=== PATIENT | female | born 1945 | race Caucasian/White ===

== ENCOUNTER 2018-03-07 08:29 | Outpatient (CLI) | payer MEDICARE | END 2018-03-07 08:30 | disposition home or self-care (01) | LOC: BICMAMMO 08:29 | PROVIDERS: ATTEND Family Medicine | DX: Z12.31 Encounter for screening mammogram for malignant neoplasm of breast (principal); R92.1 Mammographic calcification found on diagnostic imaging of breast; Z80.3 Family history of malignant neoplasm of breast | CPT/HCPCS: 77063; 77067 ==

== ENCOUNTER 2019-03-13 08:59 | Outpatient (CLI) | payer MEDICARE ==
--- NOTE | 2019-03-13 10:15 | MMO ---
Bilateral MAMMO Bilat Screen [facility]DI[facility]IOT. CLINICAL HISTORY: Patient is 73 years old and is seen for screening. The patient has the following family history of breast cancer: sister, at age 71, malignant (generic). The patient has no personal history of cancer. VIEWS: The views performed were: bilateral craniocaudal with tomosynthesis and bilateral mediolateral oblique with tomosynthesis. FILMS COMPARED: The present examination has been compared to prior imaging studies performed at [facility] on 02/05/2015, 02/07/2016, 02/27/2017 and 03/07/2018. MAMMOGRAM FINDINGS: The breasts are heterogeneously dense, which could obscure a lesion on mammography. There are stable benign appearing calcifications seen in both breasts. There are no suspicious masses, suspicious calcifications, or new areas of architectural distortion. IMPRESSION: THERE IS NO MAMMOGRAPHIC EVIDENCE OF MALIGNANCY. A ROUTINE FOLLOW-UP MAMMOGRAM IN 1 YEAR IS RECOMMENDED. THE RESULTS OF THIS EXAM WERE SENT TO THE PATIENT. ACR BI-RADS Category 2 - Benign finding MAMMOGRAPHY NOTE: 1. A negative mammogram report should not delay a biopsy if a dominant of clinically suspicious mass is present. 2. Approximately 10% to 15% of breast cancers are not detected by mammography. 3. Adenosis and dense breasts may obscure an underlying neoplasm. Reported by: OLMAN ESPOSITO MD Electonically Signed: [id number]
== END 2019-03-13 09:00 | disposition home or self-care (01) ==
LOC: BICMAMMO 08:59
PROVIDERS: ATTEND Family Medicine
DX: Z12.31 Encounter for screening mammogram for malignant neoplasm of breast (principal); Z80.3 Family history of malignant neoplasm of breast
CPT/HCPCS: 77063; 77067

== ENCOUNTER 2019-10-23 07:32 | Inpatient (IN) | payer MEDICARE, OTHER ==
[2019-10-23] MEDS ORDERED: Ondansetron PF 4 MG/2 ML Vial IVP PRN (10:59)
[2019-10-23] MEDS ORDERED: Ondansetron ODT 4 MG TAB SL PRN (10:59)
[2019-10-23] MEDS ORDERED: Dextrose 5% in Water 1,000 ML IV PRN (11:29)
[2019-10-23] MEDS ORDERED: Dextrose 50% Abboject 50 ML SYRINGE SLOW IVP PRN (11:29)
[2019-10-23] MEDS ORDERED: HumaLOG 300 UNITS/3 ML VIAL SC PRN ×2 (11:29)
--- NOTE | 2019-10-23 12:13 | HP ---
PRIMARY CARE PROVIDER: Cesilia Gonzales MD CHIEF COMPLAINT: Fever and chills. HISTORY OF PRESENT ILLNESS: This is a 74-year-old female, who initially presented to [facility] complaining of shaking chills, fever, and mild dysuria. The patient was initially evaluated in the emergency room and diagnosed with urinary tract infection and given Macrobid for home. The patient returned home and took the first dose of her Macrobid but then experienced abdominal discomfort and nausea. The patient presented back to the emergency room within 12 hours, complaining of general body aches, fever, chills, and "shaking inside." The patient denied any travel history or known exposures, or family members with similar symptoms. The patient denied any prominent shortness of breath, productive cough, or chest pain. The patient denied any other medication change or exposure other than the Macrobid, which was prescribed for her urinary tract infection. The patient denied any recent travel history or known COVID exposure. The patient does state that while being evaluated in the emergency room, she developed sudden emesis x3 episodes, necessitating removing her surgical mask. In the emergency room, the patient underwent general evaluation, receiving IV fluids in addition to Zofran, Tylenol, and Rocephin with vancomycin. The patient was referred to the Hospitalist Service for evaluation. PAST MEDICAL HISTORY: 1. Hypertension. 2. Diabetes mellitus type 2. 3. Chronic kidney disease. PAST SURGICAL HISTORY: Status post cholecystectomy. CURRENT MEDICATIONS: The list is being reviewed with the patient and will obtain an accurate list from the family. ALLERGIES: ERYTHROMYCIN AND SULFA. FAMILY HISTORY: Positive for hypertension. SOCIAL HISTORY: Resides in [place], [place]. Retired. Lives independently. Does not drive. No current falls. No alcohol, tobacco, or illicit drug use. REVIEW OF SYSTEMS: CONSTITUTIONAL: Negative for weight loss or gain, ability to conduct usual activities. SKIN: Negative for rash, itching. EYES: Negative for double vision, pain. ENT/MOUTH: Negative for nose bleeding, neck stiffness, pain, tenderness. CARDIOVASCULAR: Negative for palpitations, dyspnea on exertion, orthopnea. RESPIRATORY: Negative for shortness of breath, wheezing, cough, hemoptysis, fever or night sweats. GASTROINTESTINAL: Negative for poor appetite, abdominal pain, heartburn, nausea, vomiting, constipation, or diarrhea. GENITOURINARY: Negative for urgency, frequency, dysuria, nocturia. MUSCULOSKELETAL: Negative for pain, swelling. NEUROLOGIC/PSYCHIATRIC: Negative for anxiety, depression. ALLERGY/IMMUNOLOGIC: Negative for skin rash, bleeding tendency. Otherwise negative except as stated per HPI. PHYSICAL EXAMINATION: VITAL SIGNS: On admission, blood pressure 126/57, pulse 98, respiratory rate 19, temperature 100 degrees Fahrenheit, and O2 saturation 96% on room air. GENERAL APPEARANCE: This is a 74-year-old female, alert and oriented x3, pleasant, responsive, in no acute distress. HEENT: Pupils are equal, round, and reactive to light and accommodation. Extraocular muscles are intact. No scleral icterus. No conjunctival injection. Nares are patent. OP is clear. Teeth in good repair. NECK: Supple. No cervical adenopathy. No thyromegaly. No carotid bruits. No JVD appreciated. Cervical spine with full active and passive range of motion. No meningeal signs noted. CHEST: Lungs are clear to auscultation bilaterally. CARDIOVASCULAR: S1 and S2 with regular rate and rhythm. No murmur, rub, or gallop appreciated. ABDOMEN: Obese, soft, nontender, and nondistended. Bowel sounds are positive in all 4 quadrants. There is no hepatosplenomegaly. No abdominal bruits. No rebound or guarding appreciated. EXTREMITIES: Warm and dry with fair turgor. No clubbing, cyanosis, or asymmetric edema appreciated. Pulses palpable distally at the dorsalis pedis, posterior tibial, and popliteal arteries bilaterally. Capillary refill less than 2 seconds. NEUROLOGIC: Cranial nerves 2 through 12 are grossly intact. No focal or lateralizing signs appreciated. PERTINENT LABORATORY AND X-RAY FINDINGS: Sodium 135, potassium 4.1, chloride 101, CO2 of 22, BUN 25, creatinine 1.53, estimated GFR of 33, glucose 120. Lactic acid level 1.7, calcium 10.3. LFTs within normal limits. CBC showed a white blood cell count of 9.4, hemoglobin 14, hematocrit 43, platelet count 186 with 93% neutrophilia. Urinalysis dated 10/22/2019, showed large leukocyte esterase with 11 to 20 wbc's per high-power field, 2+ bacteria. Portable chest x-ray dated 10/23/2019, showed no acute cardiopulmonary process. EKG dated 10/23/2019, by my interpretation shows sinus tachycardia with heart rates in the low 100s. Normal R-wave progression noted in the precordial leads. Right bundle-branch block pattern noted. No acute ST-T wave changes appreciated. ASSESSMENT AND PLAN: 1. Systemic inflammatory response syndrome secondary to suspected urinary tract infection. The patient will be admitted to the medical floor. We will continue supportive management including IV fluids with normal saline. Continue Rocephin 2 g IV q.24 hours for suspected urinary tract infection and etiology of presentation. Await blood and final urine culture results. 2. Acute on chronic kidney disease, suspect secondary to volume depletion and #1. Continue intravenous normal saline at 100 mL/h. Avoid nephrotoxic agents and limit contrast exposure. Repeat creatinine in the a.m. 3. Dehydration. Continue IV fluids as outlined previously. 4. Diabetes mellitus type 2. Insulin sliding scale for reflexive coverage. Accu-Cheks a.c. and at bedtime. ADA diet. Confirm home diabetic regimen. 5. COVID-19 rule out. COVID-19 PCR pending due to the patient's risk factors and presentation. Respiratory and droplet isolation. 6. Prophylaxis. SCDs while in bed. Pepcid 20 mg p.o. b.i.d. CODE STATUS: Full. Surrogate medical decision maker is the patient's sister. Job ID: [id number]
[2019-10-23 12:40] VITALS: BMI 37.4
[2019-10-23] MEDS: Sodium Chloride 0.9% 1,000 ML IV SCH ×2 (12:46→19:35)
[2019-10-23] MEDS: Acetaminophen 500 MG TAB PO PRN ×2 (15:39→22:40)
[2019-10-23] MEDS: Famotidine 20 MG TAB PO SCH (19:45)
[2019-10-24] MEDS: cefTRIAXone\\ROCEPHIN 2 GM in Sodium Chloride 0.9% 100 ML IVPB SCH (05:13)
[2019-10-24] MEDS: Sodium Chloride 0.9% 1,000 ML IV SCH ×3 (05:13→20:28)
[2019-10-24 07:27] LABS: Hemoglobin 10.8 g/dL (12.0-16.0); Mean Corpuscular Volume 96.8 fL (78.0-98.0); Mean Platelet Volume 7.6 fL (7.4-10.4); Platelet Count 140 thou/uL (130-400); RBC Distribution Width 12.9 % (11.5-14.5); Red Blood Cell (RBC) Count 3.39 mill/uL (4.20-5.40); White Blood Cell (WBC) Count 4.9 thou/uL (4.8-10.8)
[2019-10-24 07:42] LABS: Band 5 % (5-11); Eosinophils 3 % (0-10); Lymphocytes 12 % (21-51); MDiff Complete? YES; Monocytes 2 % (0-10); Neutrophil 78 % (42-75); RBC Morphology Normal
[2019-10-24 07:49] LABS: Anion Gap 9 mmol/L (10-20); BUN (Urea Nitrogen) 18 mg/dL (9.8-20.1); Calc. Creatinine Clearance 64 mL/min (70-130); Calcium 8.4 mg/dL (7.8-10.44); Carbon Dioxide 23 mmol/L (23-31); Chloride 109 mmol/L (98-107); Estimated GFR-MDRD 49; Glucose 87 mg/dL (83-110); Sodium 137 mmol/L (136-145)
[2019-10-24] MEDS: Acetaminophen 500 MG TAB PO PRN (08:14)
[2019-10-24] MEDS: Famotidine 20 MG TAB PO SCH ×2 (08:14→20:28)
--- NOTE | 2019-10-24 10:48 | PDOC.HOSPP ---
- Subjective Encounter Date: 10/24/19 Encounter Time: 10:45 Subjective: f/u for SIRS/UTI and COVID r/o. c/o of itchy eyes and allergy symptoms. Overall doing better today. - Objective Vital Signs & Weight: Vital Signs (12 hours) Temp Pulse Resp BP Pulse Ox 10/24/19 08:00 98.5 F 79 18 105/67 96 10/24/19 03:53 98.5 F 79 18 105/65 98 Weight Weight 198 lb Result Diagrams: 10/24/19 07:12 10/24/19 07:12 Additional Labs: Accuchecks 10/24/19 10/23/19 10/23/19 05:20 19:41 18:16 POC Glucose 97 149 H 109 10/23/19 12:59 POC Glucose 102 Microbiology 10/23/19 07:15 Nasopharyngeal swab Respiratory Virus Panel (PCR) - Final 10/23/19 07:15 Nasal swab Influenza Types A,B Direct EIA - Final 10/23/19 06:14 Venous blood - Right Arm Blood Culture - Preliminary Specimen has been received and culture in progress. No Growth to date. 10/23/19 06:00 Venous blood - Left Arm Blood Culture - Preliminary Specimen has been received and culture in progress. No Growth to date. 10/22/19 17:00 Urine clean catch Urine Culture - Preliminary Escherichia coli Radiology Reviewed by me: Yes (PCXR - no acute process) Hospitalist ROS - Medication Medications: Active Medications Generic Name Dose Route Start Last Admin Trade Name Freq PRN Reason Stop Dose Admin Acetaminophen 1,000 mg 10/23/19 10:59 10/24/19 08:14 Tylenol PO 1,000 mg Q6H PRN Administration Mild Pain (1-3) Famotidine 20 mg 10/23/19 21:00 10/24/19 08:14 Pepcid PO 20 mg BID DAYLIN Administration Ceftriaxone Sodium 2 gm/ 100 mls @ 200 mls/hr 10/24/19 06:00 10/24/19 05:13 Sodium Chloride IVPB 100 mls 0600 DAYLIN Administration Sodium Chloride 1,000 mls @ 100 mls/hr 10/23/19 11:00 10/24/19 05:13 Normal Saline 0.9% IV 1,000 mls .Q10H DAYLIN Administration - Exam General Appearance: NAD, awake alert Eye: PERRL, anicteric sclera ENT: normocephalic atraumatic, no oropharyngeal lesions Neck: supple, symmetric, no JVD, no thyromegaly Heart: RRR, no murmur, no gallops, no rubs, normal peripheral pulses Heart - other findings: S1, S2 Respiratory: CTAB, no wheezes, no rales, no ronchi, normal chest expansion Gastrointestinal: soft, non-tender, non-distended, normal bowel sounds, no palpable masses Extremities: no cyanosis, no clubbing, no edema Skin: normal turgor, no lesions Neurological: cranial nerve grossly intact, no new deficit Musculoskeletal: normal tone, normal strength Psychiatric: normal affect, A&O x 3 Hosp A/P (1) SIRS due to Gram-negative infection Code(s): TTQ1369 - Status: Acute Plan: Continue Rocephin IV, general supportive mgmt (2) E. coli UTI Code(s): N39.0 - URINARY TRACT INFECTION, SITE NOT SPECIFIED; B96.20 - UNSP ESCHERICHIA COLI THE CAUSE OF DISEASES CLASSD ELSWHR Status: Acute Plan: Low-colony on Ucx, continue Rocephin another 24h then convert to po option, continue IVF's (3) Acute kidney injury superimposed on CKD Code(s): N17.9 - ACUTE KIDNEY FAILURE, UNSPECIFIED; N18.9 - CHRONIC KIDNEY DISEASE, UNSPECIFIED Status: Acute Plan: Improved, continue IVF's, avoid nephrotoxic meds and limit contrast exposure (4) Dehydration Code(s): E86.0 - DEHYDRATION Status: Acute Plan: Improving, continue IVF's and encourage increased free-H2O intake (5) DM II (diabetes mellitus, type II), controlled Code(s): E11.9 - TYPE 2 DIABETES MELLITUS WITHOUT COMPLICATIONS Status: Chronic Plan: Diet managed (6) Suspected COVID-19 virus infection Code(s): R68.89 - OTHER GENERAL SYMPTOMS AND SIGNS Status: Acute Plan: Pending PCR testing, respiratory isolation - Plan continue antibiotics, out of bed/ambulate, DVT proph w/SCDs stable currently Continue Rocephin IV Claritin/Cepacol PRN Await COVID PCR results Likely home in 24h
[2019-10-24] MEDS: Cepastat Lozenges 1 LOZ PO PRN (12:30)
[2019-10-24] MEDS: Loratadine 10 MG TAB PO PRN (12:30)
[2019-10-25] MEDS: cefTRIAXone\\ROCEPHIN 2 GM in Sodium Chloride 0.9% 100 ML IVPB SCH (05:10)
[2019-10-25] MEDS: Famotidine 20 MG TAB PO SCH (08:49)
[2019-10-25 09:52] VITALS: BP 133/76; TEMP 98.6
[2019-10-25] MEDS: Loratadine 10 MG TAB PO PRN (11:25)
[2019-10-25] MEDS: Cepastat Lozenges 1 LOZ PO PRN (12:33)
--- NOTE | 2019-10-25 13:01 | DIS ---
DATE OF ADMISSION: 10/23/2019 DATE OF DISCHARGE: 10/25/2019 DISCHARGE DIAGNOSES: 1. Urinary tract infection with Escherichia coli. 2. Systemic inflammatory response syndrome secondarily to urinary tract infection with Escherichia coli resolved. 3. Acute kidney injury on chronic kidney disease, improved. 4. Diabetes mellitus, type 2, diet controlled. 5. COVID-19 ruled out. CONSULTATIONS: None. PERTINENT LABORATORY AND X-RAY FINDINGS: CBC showed a hemoglobin of 11, hematocrit 34. Urine culture dated 10/22/2019, showed 10,000 to 25,000 colonies of E coli pansensitive. Blood cultures x2 dated 10/23/2019, showed no growth to date. Influenza A and B antigen dated 10/23/2019 negative. Respiratory viral panel dated 10/23/2019, negative. COVID-19 PCR negative. HOSPITAL COURSE: The patient was admitted to the medical floor after initially presenting with fever and chills. The patient was placed in respiratory isolation due to concern for potential COVID infection as well as treated for suspected urinary tract infection. The patient was placed on IV Rocephin with urine culture showing E coli species as stated previously. The patient rapidly clinically improved with IV antibiotic therapy and general supportive management with IV fluids. The patient ruled out for COVID-19 by PCR and was taken off respiratory isolation. Overall, the patient did remain clinically stable during the hospital course. I have examined the patient at the time of discharge and discussed followup instructions. The patient verbalizes understanding and in agreement and ready for discharge on 10/25/2019. DISCHARGE MEDICATIONS: Levaquin 500 mg p.o. daily x5 days. FOLLOWUP: The patient to follow up with her primary care provider, Dr. Cesilia Gonzales. CONDITION ON DISCHARGE: Stable. ACTIVITY: Ad-winter. DIET: ADA. CODE STATUS: Full. DISPOSITION: Home on 10/25/2019. Job ID: [id number]
[2019-10-25] MEDS: Sodium Chloride 0.9% 1,000 ML IV SCH (14:48)
--- NOTE | 2019-10-28 07:25 | PQF ---
VICKIE CHOI CHARLES DO [id number] T4-A- [id number] CLINICAL DOCUMENTATION CLARIFICATION FORM: POST DISCHARGE Addendum to original discharge summary date: ____ Late entry note date: __ DATE: 10/28/2019 ATTN: ZENAIDA ELIZALDE DO Please exercise your independent, professional judgment in responding to the clarification form. Clinical indicators are provided on the bottom of this form for your review Please check appropriate box(es): [ ] Sepsis due to UTI [ x ] SIRS due to UTI [ ] with organ dysfunction [ x ] without organ dysfunction [ ] Severe sepsis with acute organ dysfunction of: (Examples: respiratory failure, encephalopathy, acute kidney failure, other) [ ] Septic Shock [ ] Localized infection without sepsis [ ] Other diagnosis [ ] Unable to determine For continuity of documentation, please document condition throughout progress notes and discharge summary. Thank You. CLINICAL INDICATORS - SIGNS / SYMPTOMS / LABS -UTI with Escherichia coli- DS, 10/24, ZENAIDA ELIZALDE DO -Systemic inflammatory response syndrome secondary to UTI- DS, 10/24, ZENAIDA ELIZALDE DO -Covid-19 ruled out- DS, 10/24, ZENAIDA ELIZALDE DO -Temp: 100F, Pulse: 98, RR: 19- H&P, 10/22TONIO CHARLES DO -WBC: 4.9-Laboratory report, 10/23 RISK FACTORS - Acute kidney injury-DS, 10/24, ZENAIDA ELIZALDE DO - UTI- DS, 10/24, ZENAIDA ELIZALDE DO TREATMENTS: - Rocephin.IV- TONIO RODARTE CHARLES DO (This form is maintained as a part of the permanent medical record) 2014 [employer]. All Rights Reserved [facility]
--- NOTE | 2019-10-30 00:36 | PQF ---
VICKIE CHOI CHARLES DO [id number] T4-A- 4413 [id number] CLINICAL DOCUMENTATION CLARIFICATION FORM: POST DISCHARGE Addendum to original discharge summary date: ____ Late entry note date: __ DATE: 10/30/2019 ATTN:ZENAIDA ELIZALDE DO Please exercise your independent, professional judgment in responding to the clarification form. Clinical indicators are provided on the bottom of this form for your review Please check appropriate box(s): [ x ] CKD please specify Stage of CKD_III [ ] ESRD [ ] Other diagnosis [ ] Unable to determine National Kidney Foundation Guidelines for CKD Staging Stage I Kidney damage with normal or increased GFRGFR > 90 Stage IIKidney damage with mildly decreased GFRGFR 60-89 Stage III Kidney damage with moderately decreased GFRGFR 30-59 Stage IVKidney damage with severely decreased GFRGFR 16-29 Stage VKidney failureGFR<15 ESRDEnd Stage Renal DiseaseOn dialysis Acute Renal Failure/Acute Kidney Failure defined as: Increases in SCr by (>) 0.3 mg/dl within 48 hours OR- Increases in SCr by (>) 1.5 times baseline, known or presumed to have occurred within the prior 7 days OR- Urine volume < 0.5 ml/kg/hour for 6 hours (KDIGO supplement 2012 for RIFLE/OLIVE criteria) For continuity of documentation, please document condition throughout progress notes and discharge summary. Thank You. CLINICAL INDICATORS - SIGNS / SYMPTOMS / LABS / RESULTS AND LOCATION IN MR - Acute kidney injury on chronic kidney disease- DS, 10/24, rAt Raya DO - BUN: 18- Laboratory report, 10/23 - Creatinine- Laboratory report, 10/23 - GFR : 49- Laboratory report, 10/23 RISK FACTORS / RESULTS AND LOCATION IN MR - PMH: Hypertension - H&P, 10/27, Zenaida Elizalde DO - PMH: DM type2-- H&P, 10/27, Zenaida Elizalde DO - Dehydration: - H&P, 10/27, Zenaida Elizalde DO TREATMENTS / RESULTS AND LOCATION IN MR - Sodium chloride.IV- MAR, 10/23 (This form is maintained as a part of the permanent medical record) 2014 [employer] All Rights Reserved Cris [email or web address] DERIAN
== END 2019-10-25 15:50 | disposition home or self-care (01) | DRG 690 ==
LOC: T4-A 09:57
PROVIDERS: ADMIT Emergency Medicine; ATTEND Emergency Medicine
PROC: 8E0ZXY6 Isolation (ICD-10-PCS; principal; 2019-10-23)
DX: N39.0 Urinary tract infection, site not specified (principal); N17.9 Acute kidney failure, unspecified; E86.0 Dehydration; E86.9 Volume depletion, unspecified; I12.9 Hypertensive chronic kidney disease with stage 1 through stage 4 chronic kidney disease, or unspecified chronic kidney disease; N18.3 Chronic kidney disease, stage 3 (moderate); B96.20 Unspecified Escherichia coli [E. coli] as the cause of diseases classified elsewhere; E11.22 Type 2 diabetes mellitus with diabetic chronic kidney disease; Z90.49 Acquired absence of other specified parts of digestive tract; Z88.1 Allergy status to other antibiotic agents; Z88.2 Allergy status to sulfonamides; Z79.4 Long term (current) use of insulin
CPT/HCPCS: 36415; 36416; 80048; 85007; 85027; J0696; J3490

== ENCOUNTER 2020-03-16 11:03 | Outpatient (CLI) | payer MEDICARE ==
--- NOTE | 2020-03-16 12:29 | MMO ---
Bilateral MAMMO Bilat Screen [facility]DI[facility]ELLIOT. CLINICAL HISTORY: Patient is 74 years old and is seen for screening. The patient has the following family history of breast cancer: sister, at age 71, malignant (generic). The patient has no personal history of cancer. VIEWS: The views performed were: bilateral craniocaudal with tomosynthesis and bilateral mediolateral oblique with tomosynthesis. FILMS COMPARED: The present examination has been compared to prior imaging studies performed at [facility] on 02/07/2016, 02/27/2017, 03/07/2018 and 03/13/2019. This study has been interpreted with the assistance of computer-aided detection. MAMMOGRAM FINDINGS: The breasts are heterogeneously dense, which could obscure a lesion on mammography. Finding 1: There are stable benign appearing calcifications seen in both breasts. Finding 2: There are stable benign appearing densities seen in both breasts. Finding 3: There is a stable intramammary lymph node seen in the left breast. There are no suspicious masses, suspicious calcifications, or new areas of architectural distortion. IMPRESSION: THERE IS NO MAMMOGRAPHIC EVIDENCE OF MALIGNANCY. A ROUTINE FOLLOW-UP MAMMOGRAM IN 1 YEAR IS RECOMMENDED. THE RESULTS OF THIS EXAM WERE SENT TO THE PATIENT. ACR BI-RADS Category 2 - Benign finding MAMMOGRAPHY NOTE: 1. A negative mammogram report should not delay a biopsy if a dominant of clinically suspicious mass is present. 2. Approximately 10% to 15% of breast cancers are not detected by mammography. 3. Adenosis and dense breasts may obscure an underlying neoplasm. Reported by: CHANDU PEPPER MD Electonically Signed: [id number]
== END 2020-03-16 11:04 | disposition home or self-care (01) ==
LOC: BICMAMMO 11:03
PROVIDERS: ATTEND Family Medicine
DX: Z12.31 Encounter for screening mammogram for malignant neoplasm of breast (principal); Z80.3 Family history of malignant neoplasm of breast
CPT/HCPCS: 77063; 77067

== ENCOUNTER 2021-03-29 10:10 | Outpatient (CLI) | payer MEDICARE | END 2021-03-29 10:11 | disposition home or self-care (01) | LOC: BICMAMMO 10:10 | PROVIDERS: ATTEND Family Medicine | DX: Z12.31 Encounter for screening mammogram for malignant neoplasm of breast (principal); Z80.3 Family history of malignant neoplasm of breast | CPT/HCPCS: 77063; 77067 ==

== ENCOUNTER 2022-04-06 10:13 | Outpatient (CLI) | payer MEDICARE | END 2022-04-06 10:14 | disposition home or self-care (01) | LOC: BICMAMMO 10:13 | PROVIDERS: ATTEND Family Medicine | DX: Z12.31 Encounter for screening mammogram for malignant neoplasm of breast (principal); Z80.3 Family history of malignant neoplasm of breast | CPT/HCPCS: 77063; 77067 ==

== ENCOUNTER 2023-04-18 15:00 | Outpatient (CLI) | payer MEDICARE | END 2023-04-18 15:01 | disposition home or self-care (01) | LOC: BICMAMMO 15:00 | PROVIDERS: ATTEND Family Medicine | DX: Z12.31 Encounter for screening mammogram for malignant neoplasm of breast (principal); Z80.3 Family history of malignant neoplasm of breast | CPT/HCPCS: 77063; 77067 ==

== ENCOUNTER 2024-06-23 12:11 | Outpatient (CLI) | payer MEDICARE | END 2024-06-23 12:12 | disposition home or self-care (01) | LOC: BICMAMMO 12:11 | PROVIDERS: ATTEND Family Medicine | DX: Z12.31 Encounter for screening mammogram for malignant neoplasm of breast (principal); Z80.3 Family history of malignant neoplasm of breast | CPT/HCPCS: 77063; 77067 ==

== ENCOUNTER 2024-07-05 12:32 | Inpatient (IN) | payer MEDICARE ==
[2024-07-05] MEDS ORDERED: Dextrose 50% Abboject 50 ML SYRINGE SLOW IVP PRN (14:15)
[2024-07-05] MEDS ORDERED: Senokot S 8.6-50 MG TAB PO PRN (14:15)
[2024-07-05] MEDS ORDERED: Glucagon 1 MG/ML KIT IM PRN (14:15)
[2024-07-05] MEDS ORDERED: Acetaminophen 325 MG TAB PO PRN (14:15)
[2024-07-05] MEDS ORDERED: Insulin Regular, Human 100 UNIT/ML 10 ML VIAL SC PRN (14:15)
[2024-07-05] MEDS ORDERED: Dextrose 5% in Water 1,000 ML IV PRN (14:15)
[2024-07-05 15:43] LABS: Critical Call Chem Troponin I NUR.SD13
[2024-07-05 15:44] LABS: Troponin I 0.344 ng/mL (< 0.028)
[2024-07-05 16:00] VITALS: BMI 36.2
[2024-07-05] MEDS: Famotidine 20 MG TAB PO SCH (19:45)
[2024-07-05] MEDS: Metoprolol Tartrate 25 MG TAB PO SCH (19:45)
[2024-07-05] MEDS: Enoxaparin 80 MG (0.8 mL) SYRINGE SC SCH (19:47)
[2024-07-05] MEDS: Digoxin 0.5 MG/2 ML AMP SLOW IVP SCH (22:13)
[2024-07-05] MEDS: Potassium Chloride 20 MEQ TAB PO SCH (22:15)
[2024-07-05] MEDS: Melatonin 3 MG TAB PO PRN (23:30)
[2024-07-06 04:30] LABS: #Basophils 0.03 10x3/uL (0.0-0.2); %Basophils 0.5 % (0.0-1.0); %Eosinophils 4.9 % (0.0-10.0); %Lymphocytes 17.8 % (21.0-51.0); %Monocytes 7.7 % (0.0-10.0); %Neutrophils 68.8 % (42.0-75.0); Hematocrit 36.1 % (36.0-47.0); Hemoglobin 11.5 g/dL (12.0-16.0); Mean Corpuscular HGB CONC 31.9 g/dL (32.0-36.0); Mean Corpuscular Hemoglobin 30.3 pg (27.0-31.0); Mean Corpuscular Volume 95.3 fL (78.0-98.0); Mean Platelet Volume 10.4 fL (7.4-10.4); Platelet Count 200 10x3/uL (130-400); RBC Distribution Width 16.3 % (11.5-14.5); Red Blood Cell (RBC) Count 3.79 mill/uL (4.20-5.40)
[2024-07-06 04:42] LABS: Anion Gap 13 mmol/L (10-20); BUN (Urea Nitrogen) 21 mg/dL (9.8-20.1); Calc. Creatinine Clearance 53 mL/min (70-130); Calcium 8.8 mg/dL (7.8-10.44); Carbon Dioxide 25 mmol/L (23-31); Chloride 106 mmol/L (98-107); Estimated GFR 47; Glucose 109 mg/dL (83-110); Magnesium 2.3 mg/dL (1.6-2.6); Potassium 4.1 mmol/L (3.5-5.1); Sodium 140 mmol/L (136-145)
[2024-07-06] MEDS: Furosemide 40 MG (4 mL) VIAL SLOW IVP SCH (05:03)
[2024-07-06] MEDS: Metoprolol Succinate XL 25 MG ER.TAB PO SCH (09:02)
[2024-07-06] MEDS: Aspirin 81 mg Enteric Coated Tablet PO SCH (09:02)
[2024-07-06] MEDS: Potassium Chloride 20 MEQ TAB PO SCH (09:02)
[2024-07-06] MEDS: Enoxaparin 100 MG (1 mL) SYRINGE SC SCH (09:05)
[2024-07-06] MEDS: Famotidine 20 MG TAB PO SCH (20:19)
[2024-07-06] MEDS ORDERED: Communication Order-Pharmacy FS SCH (22:30)
[2024-07-07 04:14] LABS: #Basophils 0.05 10x3/uL (0.0-0.2); %Basophils 0.7 % (0.0-1.0); %Eosinophils 5.1 % (0.0-10.0); %Lymphocytes 23.2 % (21.0-51.0); %Monocytes 8.8 % (0.0-10.0); %Neutrophils 61.9 % (42.0-75.0); Hematocrit 38.6 % (36.0-47.0); Hemoglobin 12.3 g/dL (12.0-16.0); Mean Corpuscular HGB CONC 31.9 g/dL (32.0-36.0); Mean Corpuscular Hemoglobin 30.4 pg (27.0-31.0); Mean Corpuscular Volume 95.5 fL (78.0-98.0); Mean Platelet Volume 10.4 fL (7.4-10.4); Platelet Count 225 10x3/uL (130-400); RBC Distribution Width 16.2 % (11.5-14.5); Red Blood Cell (RBC) Count 4.04 mill/uL (4.20-5.40)
[2024-07-07 04:36] LABS: Anion Gap 14 mmol/L (10-20); BUN (Urea Nitrogen) 29 mg/dL (9.8-20.1); Calc. Creatinine Clearance 49 mL/min (70-130); Calcium 9.1 mg/dL (7.8-10.44); Carbon Dioxide 25 mmol/L (23-31); Chloride 105 mmol/L (98-107); Estimated GFR 42; Glucose 113 mg/dL (83-110); Magnesium 2.2 mg/dL (1.6-2.6); Potassium 4.3 mmol/L (3.5-5.1); Sodium 140 mmol/L (136-145)
[2024-07-07] MEDS: Metoprolol Succinate XL 25 MG ER.TAB PO SCH (09:58)
[2024-07-07] MEDS ORDERED: Iopamidol 370 76% 100 ML VIAL ONE (13:03)
[2024-07-07] MEDS ORDERED: fentaNYL 50 mcg/mL 1 mL Vial ONE (14:22)
[2024-07-07] MEDS ORDERED: Nitroglycerin 50 MG/250 ML BOT 0 ML ONE (14:22)
[2024-07-07] MEDS ORDERED: Midazolam HCl 2 mg/2 ml Vial ONE (14:22)
[2024-07-07] MEDS ORDERED: Heparin 10,000 UNITS/ 10 ML VIAL ONE (14:22)
[2024-07-07] MEDS ORDERED: Nitroglycerin 0.4 MG TAB (25 Tab Bottle) SL PRN (16:35)
[2024-07-07] MEDS ORDERED: Sodium Chloride 0.9% 200 ML IV PRN (16:35)
[2024-07-07] MEDS ORDERED: Acetaminophen/Codeine 30-300mg Tablet PO PRN ×2 (16:35)
[2024-07-07] MEDS: Apixaban 5 MG TAB PO SCH (19:59)
[2024-07-08 05:02] LABS: #Basophils 0.04 10x3/uL (0.0-0.2); %Basophils 0.6 % (0.0-1.0); %Eosinophils 3.6 % (0.0-10.0); %Lymphocytes 15.8 % (21.0-51.0); %Monocytes 8.1 % (0.0-10.0); %Neutrophils 71.5 % (42.0-75.0); Hematocrit 39.3 % (36.0-47.0); Hemoglobin 12.4 g/dL (12.0-16.0); Mean Corpuscular HGB CONC 31.6 g/dL (32.0-36.0); Mean Corpuscular Hemoglobin 30.4 pg (27.0-31.0); Mean Corpuscular Volume 96.3 fL (78.0-98.0); Mean Platelet Volume 10.2 fL (7.4-10.4); Platelet Count 258 10x3/uL (130-400); RBC Distribution Width 16.3 % (11.5-14.5); Red Blood Cell (RBC) Count 4.08 mill/uL (4.20-5.40)
[2024-07-08 05:29] LABS: Anion Gap 14 mmol/L (10-20); BUN (Urea Nitrogen) 25 mg/dL (9.8-20.1); Calc. Creatinine Clearance 50 mL/min (70-130); Calcium 9.1 mg/dL (7.8-10.44); Carbon Dioxide 24 mmol/L (23-31); Chloride 104 mmol/L (98-107); Estimated GFR 47; Glucose 119 mg/dL (83-110); Potassium 4.4 mmol/L (3.5-5.1); Sodium 138 mmol/L (136-145)
[2024-07-08] MEDS: Metoprolol Succinate XL 25 MG ER.TAB PO SCH ×2 (08:35→09:17)
[2024-07-08] MEDS: Furosemide 40 MG TAB PO SCH (09:18)
[2024-07-08 09:46] LABS: Hemoglobin A1c 5.8 % (4.0-6.0)
[2024-07-08] MEDS: Atorvastatin Calcium 40 MG TAB PO SCH (10:21)
[2024-07-08 11:14] VITALS: BP 114/60; TEMP 97.9
[2024-07-08] MEDS ORDERED: Atorvastatin Calcium 40 MG TAB PO SCH (21:00)
== END 2024-07-08 15:38 | disposition home or self-care (01) | DRG 286 ==
LOC: OBS 13:30
PROVIDERS: ADMIT Family Medicine; ATTEND Family Medicine
PROC: 4A023N7 Measurement of Cardiac Sampling and Pressure, Left Heart, Percutaneous Approach (ICD-10-PCS; principal; 2024-07-05)
PROC: B2101ZZ Fluoroscopy of Single Coronary Artery using Low Osmolar Contrast (ICD-10-PCS; 2024-07-05)
PROC: B215YZZ Fluoroscopy of Left Heart using Other Contrast (ICD-10-PCS; 2024-07-05)
DX: I13.0 Hypertensive heart and chronic kidney disease with heart failure and stage 1 through stage 4 chronic kidney disease, or unspecified chronic kidney disease (principal); I50.33 Acute on chronic diastolic (congestive) heart failure; I24.89 Other forms of acute ischemic heart disease; N18.30 Chronic kidney disease, stage 3 unspecified; E11.22 Type 2 diabetes mellitus with diabetic chronic kidney disease; I48.91 Unspecified atrial fibrillation; Z88.8 Allergy status to other drugs, medicaments and biological substances; Z90.49 Acquired absence of other specified parts of digestive tract; Z79.899 Other long term (current) drug therapy
CPT/HCPCS: 36415; 36416; 80048; 83036; 83735; 83880; 85025; 93306; 93458; 93798; 94760; 97139; 99152; 99153; C1769; J1160; J1644; J1650; J1940; J2250; J3010; Q9967